=== PATIENT | male | born 1930 | race Caucasian/White ===

== ENCOUNTER 2017-09-13 09:03 | Inpatient (IN) | payer MEDICARE ==
[~2017-09-13] VITALS: Ht 182.9 cm; Wt 64.7 kg
[2017-09-13] MEDS: AZITHROMYCIN 500MG+NS 250ML 250 ML IV SCH (11:00)
[2017-09-13 11:01] LABS: BASOPHILS % (AUTO) 0.6 % (0.0-5.0); EOSINOPHILS % (AUTO) 0.4 % (0.0-8.0); HEMATOCRIT 27.7 % (42-54); LYMPHOCYTES % (AUTO) 20.4 % (21.0-51.0); MEAN CORPUSCULAR HEMOGLOBIN 32.7 pg (27.0-33.0); MEAN CORPUSCULAR HGB CONC 33.7 g/dL (32.0-36.0); MEAN CORPUSCULAR VOLUME 97.1 fL (79-99); MONOCYTES % (AUTO) 13.1 % (3.0-13.0); NEUTROPHILS % (AUTO) 65.5 % (40.0-77.0); PLATELET COUNT (AUTO) 187 K/uL (130-400); RED BLOOD CELL COUNT(AUTO) 2.85 MIL/uL (4.50-6.20); RED CELL DISTRIBUTION WIDTH 13.8 % (11.0-15.5)
[2017-09-13 11:11] LABS: CREATININE 2.8 mg/dL (0.5-1.5); POTASSIUM 3.7 mmol/L (3.5-5.1)
[2017-09-13] MEDS ORDERED: SODIUM CHLORIDE 0.9% 1000ML 1,000 ML IV ONE (11:28)
[2017-09-13] MEDS ORDERED: CEFTRIAXONE SODIUM 1 GM ONE (11:29)
[2017-09-13] MEDS ORDERED: AZITHROMYCIN 500MG+NS 250ML 250 ML IV ONE (11:40)
[2017-09-13 12:50] VITALS: BP 109/60
[2017-09-13 13:17] LABS: APPEARANCE,URINE CLEAR (CLEAR); BILIRUBIN,URINE NEGATIVE (NEGATIVE); COLOR,URINE YELLOW (YELLOW); GLUCOSE, URINE (UA) NEGATIVE (NEGATIVE); KETONES,URINE NEGATIVE (NEGATIVE); LEUKOCYTE ESTERASE ,URINE TRACE (NEGATIVE); NITRATE,URINE NEGATIVE (NEGATIVE); OCCULT BLOOD,URINE NEGATIVE (NEGATIVE); PROTEIN,URINE NEGATIVE (NEGATIVE); UROBILINOGEN,URINE 0.2 mg/dL (0.2-1.0)
[2017-09-13 13:32] LABS: BACTERIA,URINE Rare /HPF (None Seen); RBC,URINE None Seen /HPF (0-1); SQUAMOUS EPITHELIAL CELL,UR Rare /LPF (0-2); WBC,URINE 0-1 /HPF (0-1)
[2017-09-13] MEDS ORDERED: CALC0.253 PO (14:47)
[2017-09-13] MEDS ORDERED: LORA0.5T2 PO (14:47)
[2017-09-13] MEDS ORDERED: FENO160T16 PO (14:47)
[2017-09-13] MEDS ORDERED: SERT100T12 PO (14:47)
[2017-09-13] MEDS ORDERED: CALC-877 PO (14:47)
[2017-09-13] MEDS ORDERED: AMLO5TAB2 PO (14:47)
[2017-09-13] MEDS ORDERED: PROP40TA7 PO (14:47)
[2017-09-13 16:00] VITALS: BP 11/41
[2017-09-13] MEDS: ALBUTEROL SULFATE 0.083% 2.5 MG/3 ML INH IH SCH ×2 (18:23→21:46)
[2017-09-13] MEDS ORDERED: ETAN50CA SQ (18:44)
[2017-09-13 19:55] VITALS: BP 106/51
[2017-09-13] MEDS: SODIUM CHLORIDE 0.9% 1000ML 1,000 ML IV SCH (21:00)
[2017-09-13 23:25] VITALS: BP 113/53
[2017-09-14] MEDS ORDERED: TRAZODONE HCL 50 MG TAB PO SCH (00:30)
[2017-09-14] MEDS ORDERED: TRAZODONE HCL 50 MG TAB ONE (00:36)
[2017-09-14] MEDS: ALBUTEROL SULFATE 0.083% 2.5 MG/3 ML INH IH SCH ×6 (03:01→22:16)
[2017-09-14 04:14] VITALS: BP 127/51
[2017-09-14] MEDS: SODIUM CHLORIDE 0.9% 1000ML 1,000 ML IV SCH (06:49)
[2017-09-14 08:00] VITALS: BP 127/71
[2017-09-14] MEDS ORDERED: LORAZEPAM 0.5 MG TABLET PO PRN (09:00)
[2017-09-14 11:00] VITALS: BP 150/72
[2017-09-14] MEDS: CEFTRIAXONE SODIUM 1 GM IVP SCH (11:00)
[2017-09-14] MEDS: AZITHROMYCIN 500MG+NS 250ML 250 ML IV SCH (11:00)
[2017-09-14] MEDS ORDERED: CLONAZEPAM 0.5 MG TABLET PO SCH (14:30)
[2017-09-14 16:00] VITALS: BP 167/57
[2017-09-14 19:05] VITALS: BP 138/78
[2017-09-14] MEDS: CLONAZEPAM 0.5 MG TABLET PO SCH (21:32)
[2017-09-14 23:05] VITALS: BP 111/60
[2017-09-15] MEDS: ALBUTEROL SULFATE 0.083% 2.5 MG/3 ML INH IH SCH ×6 (01:35→22:07)
[2017-09-15] MEDS: SODIUM CHLORIDE 0.9% 1000ML 1,000 ML IV SCH ×4 (03:00→22:12)
[2017-09-15 03:15] VITALS: BP 114/64
[2017-09-15 08:00] VITALS: BP 112/68
[2017-09-15] MEDS: CEFTRIAXONE SODIUM 1 GM IVP SCH (09:41)
[2017-09-15] MEDS: AZITHROMYCIN 500MG+NS 250ML 250 ML IV SCH (09:42)
[2017-09-15 11:00] VITALS: BP 121/64
[2017-09-15 16:00] VITALS: BP 132/65
[2017-09-15 20:00] VITALS: BP 134/74
[2017-09-15] MEDS: CLONAZEPAM 0.5 MG TABLET PO SCH (20:45)
[2017-09-15] MEDS ORDERED: MEMANTINE HCL 5 MG TABLET PO SCH (21:00)
[2017-09-15 23:36] VITALS: BP 115/66
[2017-09-16] MEDS: ALBUTEROL SULFATE 0.083% 2.5 MG/3 ML INH IH SCH ×4 (02:31→14:01)
[2017-09-16 03:17] VITALS: BP 112/51
[2017-09-16] MEDS: SODIUM CHLORIDE 0.9% 1000ML 1,000 ML IV SCH (09:45)
[2017-09-16] MEDS: AZITHROMYCIN 500MG+NS 250ML 250 ML IV SCH (12:01)
[2017-09-16] MEDS: CEFTRIAXONE SODIUM 1 GM IVP SCH (12:01)
== END 2017-09-16 15:30 | disposition home or self-care (01) | DRG 193 ==
LOC: EDH 09:03 → EDHIP 11:21 → OBSVTOIN 11:21 → 3AH 12:40
PROVIDERS: ADMIT Internal Medicine Hematology & Oncology; ATTEND Internal Medicine Hematology & Oncology
DX: J18.9 Pneumonia, unspecified organism (principal); N18.6 End stage renal disease; N17.9 Acute kidney failure, unspecified; F02.81 Dementia in other diseases classified elsewhere, unspecified severity, with behavioral disturbance; G30.9 Alzheimer's disease, unspecified; M45.9 Ankylosing spondylitis of unspecified sites in spine; I12.0 Hypertensive chronic kidney disease with stage 5 chronic kidney disease or end stage renal disease; F02.80 Dementia in other diseases classified elsewhere, unspecified severity, without behavioral disturbance, psychotic disturbance, mood disturbance, and anxiety; E78.5 Hyperlipidemia, unspecified; Z85.46 Personal history of malignant neoplasm of prostate
CPT/HCPCS: 36415; 71045; 80048; 81001; 83605; 85025; 87040; 87070; 87076; 87077; 87186; 87804; 93005; 94640; 94664; A4218; J0456; J0696; J7030